=== PATIENT | male | born 1955 | race Caucasian/White ===

== ENCOUNTER 2017-03-02 05:20 | Emergency (ER) | payer BC ==
[~2017-03-02] VITALS: Ht 172.7 cm; Wt 96.2 kg
[~2017-03-02 05:20] MED LIST: FINA5TAB11 PO; PRAV40TA3 PO; RANI150T8 PO; TERA2CAP4 PO
--- NOTE | 2017-03-02 05:50 | NUR ---
PT PRESENTED TO THE ER WITH A C/O SOB. PT IS SPEAKING IN COMPLETE SENTENCES WITH NO DISTRESS. RESP EVEN AND UNLABORED. PT IS 97% ON RA. PT IS ON THE MONITOR AND CONTINUOUS PULSE OX.
--- NOTE | 2017-03-02 05:51 | NUR ---
18G IV STARTED AND BLOOD WAS DRAWN. SUPERVISOR OFFSET PLATE PREPARATION IS AT THE BEDSIDE FOR P/U.
[2017-03-02 05:59] LABS: BASOPHILS % (AUTO) 0.4 % (0.0-2.0); EOSINOPHILS # (AUTO) 0.2 /CMM (0.0-0.7); EOSINOPHILS % (AUTO) 1.7 % (0.0-6.0); HEMATOCRIT 42 % (39-51); HEMOGLOBIN 14.3 g/dL (13.5-17.5); LYMPHOCYTES # (AUTO) 1.8 /CMM (0.8-4.8); LYMPHOCYTES % (AUTO) 18.1 % (20.0-44.0); MEAN CORPUSCULAR HEMOGLOBIN 29 PG (26.0-33.0); MEAN CORPUSCULAR HGB CONC 34 g/dl (31.0-36.0); MEAN CORPUSCULAR VOLUME 85 fL (80-96); MONOCYTES # (AUTO) 0.8 /CMM (0.1-1.30); NEUTROPHILS % (AUTO) 71.8 % (43.0-81.0); PLATELET COUNT (AUTO) 176 /CMM (150-450); RDW COEFFICIENT OF VARIATION 13.4 (11.5-15.0); RED BLOOD CELL COUNT(AUTO) 4.99 MIL/uL (4.5-6.0); WHITE BLOOD COUNT (AUTO) 9.8 K/uL (4.3-11.0)
[2017-03-02 06:09] LABS: CALCIUM, SERUM 8.9 mg/dL (8.5-10.1); CARBON DIOXIDE 28 mmol/L (21-32); CHLORIDE 102 mmol/L (98-107); CREATININE 0.9 mg/dL (0.6-1.3); GLUCOSE 189 mg/dL (74-106); POTASSIUM 3.6 mmol/L (3.5-5.1); SODIUM SERUM 138 mmol/L (136-145); UREA NITROGEN, BLOOD 15 mg/dL (7-18)
--- NOTE | 2017-03-02 06:09 | NUR ---
CXR IN PROGRESS AT THE BEDSIDE.
[2017-03-02 06:14] LABS: INR 0.98 (0.87-1.13); PROTHROMBIN TIME 10.5 SECS (9.5-12.7)
[2017-03-02 06:17] LABS: TROPONIN I < 0.017 ng/mL (0.00-0.056)
[2017-03-02 06:22] LABS: ALANINE AMINOTRANSFERASE 29 U/L (12-78); ALBUMIN 3.5 g/dL (3.4-5.0); ALKALINE PHOSPHATASE 84 U/L (46-116); ASPARTATE AMINOTRANSFERASE 18 U/L (15-37); B-TYPE NATRIURETIC PEPTIDE 11 PG/ML (0-125); BILIRUBIN,DIRECT 0.2 mg/dL (0.0-0.2); BILIRUBIN,TOTAL 1.1 mg/dL (0.2-1.0); TOTAL PROTEIN, SERUM 7.4 g/dL (6.4-8.2)
--- NOTE | 2017-03-02 06:30 | NUR ---
DR. ABRAHAM IS AT THE BEDSIDE SPEAKING TO THE PT.
--- NOTE | 2017-03-02 06:38 | NUR ---
IV removed. Catheter intact and site benign. Pressure and 4x4 applied to site. No bleeding noted.Patient discharged to home in stable condition. Written and verbal after care instructions given. Patient verbalizes understanding of instruction. PT AMBULATED OUT WITH A STEADY GAIT. VSS
[2017-03-02 06:39] VITALS: BP 142/86
== END 2017-03-02 06:39 | disposition home or self-care (01) ==
LOC: ER 05:25
DX: G47.33 Obstructive sleep apnea (adult) (pediatric) (principal); K21.9 Gastro-esophageal reflux disease without esophagitis; M19.90 Unspecified osteoarthritis, unspecified site; E11.9 Type 2 diabetes mellitus without complications; N40.0 Benign prostatic hyperplasia without lower urinary tract symptoms; Z95.811 Presence of heart assist device
CPT/HCPCS: 36415; 71010-TC; 80048-TC; 80076-TC; 83880; 84484-TC; 85025-TC; 85730-TC; A4606; Z7610

== ENCOUNTER 2017-10-29 17:10 | Inpatient (IN) | payer BC ==
[~2017-10-29] VITALS: Ht 172.7 cm; Wt 97.5 kg
[2017-10-29] MEDS ORDERED: IPRATROPIUM NEB FS 0.5 MG/2.5 ML AMPUL.NEB ONE (17:51)
[2017-10-29] MEDS ORDERED: ALBUTEROL FS 2.5 MG/3 ML VIAL.NEB ONE (17:51)
[2017-10-29] MEDS ORDERED: ALBUTEROL FS 2.5 MG/3 ML VIAL.NEB NEB ONE (18:00)
[2017-10-29] MEDS ORDERED: methylPREDNISolone SOD SUCC 125 MG/2ML VIAL IV ONE (18:00)
[2017-10-29] MEDS ORDERED: IPRATROPIUM NEB FS 0.5 MG/2.5 ML AMPUL.NEB NEB ONE (18:00)
--- NOTE | 2017-10-29 18:00 | NUR ---
PT CAME IN FOR FLU LIKE SYMMTOMS, COUGH AND CONGESTION. AT BS FOR EVAL. VSS. SAFETY AND COMFORT MEASURES PROVIDED. IV ACCESS STARTED. BLOOD DRAWN FOR LABS. WILL MONITOR.
--- NOTE | 2017-10-29 18:07 | NUR ---
RT AT BS FOR BREATHING TX.
[2017-10-29 18:12] LABS: BASOPHILS % (AUTO) 0.4 % (0.0-2.0); EOSINOPHILS # (AUTO) 0.1 /CMM (0.0-0.7); EOSINOPHILS % (AUTO) 2.3 % (0.0-6.0); HEMATOCRIT 42 % (39-51); LYMPHOCYTES # (AUTO) 1.2 /CMM (0.8-4.8); LYMPHOCYTES % (AUTO) 20.1 % (20.0-44.0); MEAN CORPUSCULAR HEMOGLOBIN 29 PG (26.0-33.0); MEAN CORPUSCULAR HGB CONC 34 g/dl (31.0-36.0); MEAN CORPUSCULAR VOLUME 85 fL (80-96); MONOCYTES # (AUTO) 1.1 /CMM (0.1-1.30); MONOCYTES % (AUTO) 17.5 % (2.0-12.0); NEUTROPHILS # (AUTO) 3.6 /CMM (1.8-8.9); NEUTROPHILS % (AUTO) 59.7 % (43.0-81.0); PLATELET COUNT (AUTO) 168 /CMM (150-450); RDW COEFFICIENT OF VARIATION 13.7 (11.5-15.0); RED BLOOD CELL COUNT(AUTO) 4.93 MIL/uL (4.5-6.0)
[2017-10-29 18:20] LABS: CALCIUM, SERUM 8.7 mg/dL (8.5-10.1); CARBON DIOXIDE 26 mmol/L (21-32); CHLORIDE 108 mmol/L (98-107); CREATININE 1.1 mg/dL (0.6-1.3); GLUCOSE 123 mg/dL (74-106); POTASSIUM 3.7 mmol/L (3.5-5.1); SODIUM SERUM 143 mmol/L (136-145); UREA NITROGEN, BLOOD 18 mg/dL (7-18)
[2017-10-29 18:25] LABS: TROPONIN I < 0.017 ng/mL (0.00-0.056)
[2017-10-29 18:35] LABS: ALANINE AMINOTRANSFERASE 32 U/L (12-78); ALBUMIN 3.5 g/dL (3.4-5.0); ALKALINE PHOSPHATASE 78 U/L (46-116); ASPARTATE AMINOTRANSFERASE 21 U/L (15-37); B-TYPE NATRIURETIC PEPTIDE 55 PG/ML (0-125); BILIRUBIN,DIRECT 0.1 mg/dL (0.0-0.2); BILIRUBIN,TOTAL 0.8 mg/dL (0.2-1.0); TOTAL PROTEIN, SERUM 7.6 g/dL (6.4-8.2)
[2017-10-29] MEDS ORDERED: methylPREDNISolone SOD SUCC 125 MG/2ML VIAL ONE (18:37)
[2017-10-29] MEDS ORDERED: IOHEXOL-350 100 ML VIAL IV ONE (18:56)
[2017-10-29] MEDS ORDERED: IV NS 0.9% 1,000 ML IV PRN (18:58)
[2017-10-29] MEDS ORDERED: MAG HYDROX/AL HYDROX/SIMETH 30 ML UDC PO PRN (19:00)
[2017-10-29] MEDS ORDERED: Z GUARD REMEDY 2 OZ OINT TP PRN (19:00)
[2017-10-29] MEDS ORDERED: ACETAMINOPHEN 325 MG TABLET PO PRN (19:00)
[2017-10-29] MEDS ORDERED: HYDROCODONE/APAP 5/325MG 1 EACH TABLET PO PRN (19:00)
[2017-10-29] MEDS ORDERED: IV NS 0.9% 1,000 ML BAG IV ONE (19:00)
[2017-10-29] MEDS ORDERED: ZOLPIDEM TARTRATE 5 MG TABLET PO PRN (19:00)
[2017-10-29] MEDS ORDERED: MAGNESIUM HYDROXIDE 30 ML UDC PO PRN (19:00)
[2017-10-29] MEDS ORDERED: ONDANSETRON HCL/PF 4 MG/2 ML VIAL IVP PRN (19:00)
--- NOTE | 2017-10-29 19:00 | NUR ---
PT TAKEN TO CT.
[2017-10-29] MEDS ORDERED: ATOR80TA PO (19:13)
[2017-10-29] MEDS ORDERED: GLIP5TAB13 PO (19:13)
[2017-10-29] MEDS ORDERED: LISI2.5T2 PO (19:13)
[2017-10-29] MEDS ORDERED: SITA50TA PO (19:13)
[2017-10-29] MEDS ORDERED: CLOP75TA15 PO (19:13)
--- NOTE | 2017-10-29 19:18 | NUR ---
PATIENT BACK FROM CT. VSS. NAD NOTED. REPORTS RELIEF FROM SOB POST BREATHING TREATMENT. ONGOING NORMAL SALINE BOLUS. WILL CONTINUE TO MONITOR.
[2017-10-29 19:21] LABS: APPEARANCE,URINE CLEAR (CLEAR); BILIRUBIN,URINE NEGATIVE (NEGATIVE); BLOOD, URINE 3+ Ery/uL (NEGATIVE); COLOR,URINE YELLOW (YELLOW); KETONES,URINE NEGATIVE (NEGATIVE); LEUKOCYTE ESTERASE ,URINE NEGATIVE (NEGATIVE); NITRITE, URINE NEGATIVE (NEGATIVE); PH,URINE 5.5 (5.0-8.0); PROTEIN,URINE 1+ mg/dl (NEGATIVE); UGLUCOSE NEGATIVE (NEGATIVE); UROBILINOGEN,URINE 0.2 EU/dL (0.2)
[2017-10-29] MEDS ORDERED: OXYB10TA PO (19:21)
[2017-10-29] MEDS ORDERED: PENT100C9 PO (19:21)
[2017-10-29 19:55] LABS: BACTERIA,URINE 1+ /HPF (None Seen); RBC,URINE 21-50 /HPF (0-2); SQUAMOUS EPITHELIAL CELL,UR 0-2 /HPF (None Seen); WBC,URINE 0-2 /HPF (0-3)
[2017-10-29 19:56] LABS: MUCUS,URINE Few /LPF (None Seen)
[2017-10-29 20:11] LABS: BAND % (MANUAL) 6 % (0.0-5.0); EOSINOPHILS % (MANUAL) 1 % (0-4); LYMPHOCYTES % (MANUAL) 10 % (16-48); MONOCYTES % (MANUAL) 18 % (0-11.0); NEUTROPHILS % (MANUAL) 65 (42-76)
--- NOTE | 2017-10-29 20:44 | NUR ---
REPORT GIVEN TO SABINO MARR FOR ADMISSION AND NAV.
--- NOTE | 2017-10-29 20:59 | NUR ---
TRANSFERRED PATIENT TO TELE FLOOR VIA ALS PROTOCOL, NO INCIDENT NOTED.
--- NOTE | 2017-10-29 21:00 | NUR ---
RN OPENING NOTES RECEIVED PATIENT FROM ER IN STABLE CONDITION, ALERT AND ORIENTED X4. VS STABLE. NO C/O PAIN OR DISCOMFORT AT THIS TIME. BS X4. ON OXYGEN 2L, PATIENT IS TOLERATING WELL. RESPIRATIONS EVEN AND UNLABORED. TELE MONITOR IS IN PLACE, SR 76 BPM. IV ACCESS ON LEFT AC PATENT AND INTACT, NO REDNESS OR INFILTRATION NOTED. BED IN LOW AND LOCKED POSITION. CALL LIGHT WITHIN EASY REACH. WILL CONTINUE TO MONITOR AND ASSESS DURING THE SHIFT.
[2017-10-29] MEDS: FINASTERIDE (5 MG) 5 MG TABLET PO SCH (21:33)
[2017-10-29] MEDS: TERAZOSIN HCL 1 MG CAPSULE PO SCH (21:34)
[2017-10-29] MEDS: ENOXAPARIN SODIUM 40 MG/0.4 ML DISP.SYRIN SQ SCH (21:35)
--- NOTE | 2017-10-29 23:10 | NUR ---
RN NOTES RECEIVED PT. FROM ANOTHER NURSE RAJAN PT. IS SLEEPING BUT AROUSABLE, A/OX2, SR ON TELE MONITOR HR-85, DENIES PAIN, NO SOB, CALL LIGHT WITHIN REACH, SIDERAILSUPX2, CONTINUE TO MONITOR
[2017-10-30] VITALS (8 sets, daily range): BP systolic 99–122; BP diastolic 52–78
--- NOTE | 2017-10-30 03:50 | NUR ---
RN NOTES PT. IS COMPLAINING OF COUGHING , SPOKE TO DR. MARTE AND DIDN'T GIVE AN ORDER OF COUGH MEDICATION BECAUDE PER DR. KAHN PT. NEED TO COUGH BECAUSE PT. CAME FOR COPD
[2017-10-30 06:45] LABS: BASOPHILS % (AUTO) 0.1 % (0.0-2.0); HEMATOCRIT 38 % (39-51); LYMPHOCYTES # (AUTO) 0.6 /CMM (0.8-4.8); LYMPHOCYTES % (AUTO) 16.2 % (20.0-44.0); MEAN CORPUSCULAR HEMOGLOBIN 29 PG (26.0-33.0); MEAN CORPUSCULAR HGB CONC 34 g/dl (31.0-36.0); MEAN CORPUSCULAR VOLUME 85 fL (80-96); MONOCYTES # (AUTO) 0.1 /CMM (0.1-1.30); NEUTROPHILS # (AUTO) 3.2 /CMM (1.8-8.9); NEUTROPHILS % (AUTO) 80.7 % (43.0-81.0); PLATELET COUNT (AUTO) 157 /CMM (150-450); RDW COEFFICIENT OF VARIATION 13.6 (11.5-15.0); WHITE BLOOD COUNT (AUTO) 3.9 K/uL (4.3-11.0)
--- NOTE | 2017-10-30 06:47 | NUR ---
RN NOTES IV GOT INFILTRATED, NEW IV LINE INSERTED ON THE RIGHT FOREARM, MORNING CARE RENDERED, CALL LIGHT WITHIN REACH, SIDERAILSUPX2, PT. NEEDS ATTENDED
[2017-10-30 07:01] LABS: THYROID STIMULATING HORMONE 0.4 uIU/mL (0.358-3.74)
[2017-10-30 07:15] LABS: CALCIUM, SERUM 8.1 mg/dL (8.5-10.1); CREATININE 0.8 mg/dL (0.6-1.3); MAGNESIUM 1.8 mg/dL (1.8-2.4); PHOSPHORUS 3.3 mg/dL (2.5-4.9); POTASSIUM 4.3 mmol/L (3.5-5.1)
--- NOTE | 2017-10-30 07:27 | NUR ---
RN OPENING NOTES RECEIVED PATIENT IN BED RESTING, A/OX4. NO ACUTE DISTRESS, NO SOB. DENIES PAIN OR DISCOMFORT AT THIS TIME. ON TELEMONITORING, SB 58. IV SITE INTACT AND PATENT. KEPT PATIENT SAFE AND COMFORTABLE IN BED. BED IN LOW/LOCKED POSITION, SIDERAILS UPX2, HOB ELEVATED, CALL LIGHT IN REACH, WILL CONTINUE TO MONITOR ACCORDINGLY.
[2017-10-30] MEDS: LISINOPRIL (5MG) 5 MG TABLET PO SCH (10:30)
[2017-10-30] MEDS: CLOPIDOGREL BISULFATE 75 MG TABLET PO SCH (10:52)
[2017-10-30] MEDS: methylPREDNISolone SOD SUCC 40 MG/ML VIAL IV SCH ×3 (10:54→17:41)
[2017-10-30] MEDS ORDERED: IPRATROPIUM NEB FS 0.5 MG/2.5 ML AMPUL.NEB NEB PRN (11:00)
[2017-10-30] MEDS ORDERED: INSULIN REGULAR, HUMAN 100 UNIT/ML 3 ML VIAL SQ PRN ×2 (11:00→22:30)
[2017-10-30] MEDS ORDERED: DEXTROSE 50%-WATER 50 ML DISP.SYRIN IV PRN ×2 (11:00→22:30)
[2017-10-30] MEDS: LEVOFLOXACIN 500 MG /D5W 100ML 500 MG in PREMIX 1 EA IV SCH (11:48)
[2017-10-30] MEDS: OXYBUTYNIN CHLORIDE 5 MG TABLET PO SCH (12:34)
[2017-10-30] MEDS: BLOOD SUGAR DIAGNOSTIC 1 EACH STRIP IN SCH ×3 (12:47→21:56)
--- NOTE | 2017-10-30 12:47 | NUR ---
RN NOTES BS 213, REFUSED INSULIN. PER PATIENT " I DONT TAKE INSULIN".
[2017-10-30] MEDS: ALBUTEROL FS 2.5 MG/3 ML VIAL.NEB NEB SCH ×2 (15:41→20:25)
--- NOTE | 2017-10-30 18:36 | NUR ---
RN NOTES BS 191, REFUSED INSULIN.
--- NOTE | 2017-10-30 19:30 | NUR ---
RN CLOSING NOTES PATIENT IN BED RESTING. NO ACUTE DISTRESS, NO SOB NOTED. DENIES PAIN OR DISCOMFORT. ALL NEEDS ATTENDED AND PROVIDED. KEPT PATIENT SAFE AND COMFORTABLE. BED IN LOW/LOCKED POSITION, SIDERAILS UPX2, CALL LIGHT IN REACH. ENDORSED TO NIGHT RN FOR NAV.
--- NOTE | 2017-10-30 19:30 | NUR ---
RN OPENING NOTES RECEIVED PATIENT IN BED RESTING, A/OX4. NO ACUTE DISTRESS, NO SOB. DENIES PAIN OR DISCOMFORT AT THIS TIME. ON TELEMONITORING, SB 50. IV SITE INTACT AND PATENT. KEPT PATIENT SAFE AND COMFORTABLE IN BED. BED IN LOW/LOCKED POSITION, SIDERAILS UPX2, HOB ELEVATED, CALL LIGHT IN REACH, WILL CONTINUE TO MONITOR ACCORDINGLY.
[2017-10-30] MEDS: ENOXAPARIN SODIUM 40 MG/0.4 ML DISP.SYRIN SQ SCH (19:33)
[2017-10-30] MEDS ORDERED: BENZONATATE 100 MG CAPSULE PO PRN (20:30)
[2017-10-30] MEDS ORDERED: GUAIFENESIN/D-METHORPHAN HB 5 ML UDC PO PRN (20:30)
[2017-10-30] MEDS: FINASTERIDE (5 MG) 5 MG TABLET PO SCH (21:55)
[2017-10-30] MEDS: TERAZOSIN HCL 1 MG CAPSULE PO SCH (21:56)
[2017-10-30] MEDS ORDERED: ATORVASTATIN 40 MG TABLET PO SCH (22:00)
[2017-10-30] MEDS ORDERED: FAMOTIDINE (20 MG) 20 MG TABLET PO SCH (22:00)
[2017-10-30] MEDS ORDERED: ATORVASTATIN 10 MG TABLET PO SCH (22:00)
--- NOTE | 2017-10-30 22:12 | NUR ---
teletypesetter monitor note Patient's blood sugar is 444. Explained what normal range should be. Patient is non-compliant with diet and non-compliant with insulin. He has refused insulin twice today. He states that he takes po medication at home for his diabetes. Educated patient on insulin use and importance of proper diet. Patient agreed to have 10 units of insulin administered. Notified Dr. Pena. New order received to change to aggressive sliding scale. Patient stable at this time. Will re-check blood sugar.
[2017-10-30] MEDS ORDERED: *INSULIN REGULAR(HUMULIN R)HUM 100 UNIT/ML VIAL SQ PRN (22:30)
[2017-10-31] VITALS: BP 99/47
[2017-10-31 04:00] VITALS: BP 107/47
--- NOTE | 2017-10-31 06:32 | NUR ---
MANAGER RESOURCE NOTE PATIENT STABLE. BLOOD SUGAR 209. 8 UNITS OF REGULAR INSULIN GIVEN. ALL NEEDS MET AND ATTENDED TO. WILL ENDORSE TO DAY SHIFT FOR NAV.
[2017-10-31 06:56] LABS: BASOPHILS % (AUTO) 0.1 % (0.0-2.0); EOSINOPHILS % (AUTO) 0.1 % (0.0-6.0); HEMATOCRIT 34 % (39-51); HEMOGLOBIN 11.7 g/dL (13.5-17.5); LYMPHOCYTES # (AUTO) 1.1 /CMM (0.8-4.8); LYMPHOCYTES % (AUTO) 9.7 % (20.0-44.0); MEAN CORPUSCULAR HEMOGLOBIN 29 PG (26.0-33.0); MEAN CORPUSCULAR HGB CONC 34 g/dl (31.0-36.0); MEAN CORPUSCULAR VOLUME 86 fL (80-96); MONOCYTES # (AUTO) 0.9 /CMM (0.1-1.30); MONOCYTES % (AUTO) 8.1 % (2.0-12.0); NEUTROPHILS # (AUTO) 9.3 /CMM (1.8-8.9); PLATELET COUNT (AUTO) 139 /CMM (150-450); RDW COEFFICIENT OF VARIATION 13.6 (11.5-15.0); WHITE BLOOD COUNT (AUTO) 11.3 K/uL (4.3-11.0)
[2017-10-31 07:01] LABS: CALCIUM, SERUM 7.4 mg/dL (8.5-10.1); CREATININE 0.7 mg/dL (0.6-1.3); MAGNESIUM 1.9 mg/dL (1.8-2.4); PHOSPHORUS 3.5 mg/dL (2.5-4.9); POTASSIUM 3.6 mmol/L (3.5-5.1)
[2017-10-31] MEDS: BLOOD SUGAR DIAGNOSTIC 1 EACH STRIP IN SCH ×2 (07:01→12:00)
[2017-10-31] MEDS: ALBUTEROL FS 2.5 MG/3 ML VIAL.NEB NEB SCH ×2 (07:25→11:17)
--- NOTE | 2017-10-31 07:31 | NUR ---
RN OPENING NOTES RECEIVED PATIENT IN BED RESTING, A/OX4. NO ACUTE DISTRESS, NO SOB. DENIES PAIN OR DISCOMFORT AT THIS TIME. ON TELEMONITORING, SB 48. IV SITE INTACT AND PATENT. KEPT PATIENT SAFE AND COMFORTABLE IN BED. BED IN LOW/LOCKED POSITION, SIDERAILS UPX2, HOB ELEVATED, CALL LIGHT IN REACH, WILL CONTINUE TO MONITOR ACCORDINGLY.
[2017-10-31 08:00] VITALS: BP 111/62
[2017-10-31 08:08] VITALS: BP 111/62
[2017-10-31 08:36] VITALS: BP 106/68
[2017-10-31] MEDS: methylPREDNISolone SOD SUCC 40 MG/ML VIAL IV SCH (08:36)
[2017-10-31] MEDS: LISINOPRIL (5MG) 5 MG TABLET PO SCH (08:36)
[2017-10-31] MEDS: OXYBUTYNIN CHLORIDE 5 MG TABLET PO SCH ×2 (08:48→09:00)
[2017-10-31] MEDS: CLOPIDOGREL BISULFATE 75 MG TABLET PO SCH ×2 (08:48→09:00)
[2017-10-31] MEDS ORDERED: PHENYLEPHRINE/SHK LV/MO/PET,WH 30 GM TUBE RC SCH (09:00)
--- NOTE | 2017-10-31 09:00 | NUR ---
RN NOTES PATIENT REFUSED AM MEDS. PATIENT CLAIMED THAT HAS MEDICATION FROM HIS BELONGINGS AND TOOK THEM ALREADY. INFORMED PATIENT THAT HE'S NOT SUPPOSED TO TAKE HOME MEDICATIONS WITHOUT STAFF KNOWING. ASKED PATIENT TO TAKE MEDICATIONS TO PHARMACY, PATIENT AGREED. INFORMED PICTURE HANGER AND NOE BRADSHAW NP.
[2017-10-31] MEDS: LEVOFLOXACIN 500 MG /D5W 100ML 500 MG in PREMIX 1 EA IV SCH (12:03)
[2017-10-31] MEDS ORDERED: LEVO500T90 PO (12:49)
[2017-10-31] MEDS ORDERED: ALBU18HF2 INH (12:49)
[2017-10-31] MEDS ORDERED: PRED20TA PO (12:49)
[2017-10-31] MEDS ORDERED: PRED20TA GT (12:49)
--- NOTE | 2017-10-31 14:30 | NUR ---
STRATEGIC MARKETING LEADER NOTES DISCHARGED PATIENT IN STABLE CONDITION ACCOMPANIED BY TEJINDER MORA. DISCHARGE INSTRUCTIONS GIVEN, VERBALIZED UNDERSTANDING, PAPERWORK GIVEN. ALL BELONGINGS AND MEDICATIONS RETURNED, FORMS SIGNED. D/C IV, NO BLEEDING, NO COMPLICATIONS. REMOVED NAME BAND.
== END 2017-10-31 14:32 | disposition home or self-care (01) | DRG 189 ==
LOC: ER 17:14 → TELE 20:37
PROVIDERS: ADMIT Internal Medicine; ATTEND Internal Medicine
DX: J96.01 Acute respiratory failure with hypoxia (principal); I95.9 Hypotension, unspecified; E87.2 Acidosis; J44.0 Chronic obstructive pulmonary disease with (acute) lower respiratory infection; N30.10 Interstitial cystitis (chronic) without hematuria; J44.1 Chronic obstructive pulmonary disease with (acute) exacerbation; E11.9 Type 2 diabetes mellitus without complications; D72.828 Other elevated white blood cell count; K21.9 Gastro-esophageal reflux disease without esophagitis; E78.5 Hyperlipidemia, unspecified; J20.9 Acute bronchitis, unspecified; I25.10 Atherosclerotic heart disease of native coronary artery without angina pectoris; E66.9 Obesity, unspecified; G47.30 Sleep apnea, unspecified; Z79.84 Long term (current) use of oral hypoglycemic drugs; Z98.61 Coronary angioplasty status; R59.1 Generalized enlarged lymph nodes; N40.1 Benign prostatic hyperplasia with lower urinary tract symptoms; T38.0X5A Adverse effect of glucocorticoids and synthetic analogues, initial encounter; Y92.89 Other specified places as the place of occurrence of the external cause; Z68.32 Body mass index [BMI] 32.0-32.9, adult; N28.89 Other specified disorders of kidney and ureter
CPT/HCPCS: 36415; 71045-TC; 80048-TC; 80061-TC; 80076-TC; 81000-TC; 82746; 82962-TC; 83540-TC; 83605-TC; 83735-TC; 83880; 84100-TC; 84443-TC; 84484-TC; 85025-TC; 85378-TC; 87040-TC; 87081-TC; 87400; A4216; A4606; J1650; J1815; J1956; J2920; J2930; J7030; Q9967; Z7610

== ENCOUNTER 2017-12-01 17:06 | Emergency (ER) | payer BC ==
[~2017-12-01] VITALS: Ht 177.8 cm; Wt 74.8 kg
[~2017-12-01 17:06] MED LIST changes: +ALBU18HF2 INH; +ATOR80TA PO; +CLOP75TA15 PO; +GLIP5TAB13 PO; +LEVO500T90 PO; +LISI2.5T2 PO; +OXYB10TA PO; +PENT100C9 PO; +PRED20TA GT; +PRED20TA PO; +SITA50TA PO; -TERA2CAP4 PO
--- NOTE | 2017-12-01 17:17 | NUR ---
INCREASING SOB X 1 MONTH, L SIDED CHEST PRESSURE X 2 DAYS
[2017-12-01] MEDS ORDERED: NITROGLYCERIN PACKET 1 GM PACKET TD ONE (17:30)
[2017-12-01] MEDS ORDERED: ASPIRIN 325 MG TABLET PO ONE (17:30)
[2017-12-01] MEDS ORDERED: ASPIRIN 325 MG TABLET ONE (17:44)
[2017-12-01] MEDS ORDERED: NITROGLYCERIN PACKET 1 GM PACKET ONE (17:44)
[2017-12-01 17:45] LABS: BASOPHILS % (AUTO) 0.5 % (0.0-2.0); EOSINOPHILS # (AUTO) 0.2 /CMM (0.0-0.7); EOSINOPHILS % (AUTO) 2.4 % (0.0-6.0); HEMATOCRIT 40 % (39-51); HEMOGLOBIN 13.8 g/dL (13.5-17.5); LYMPHOCYTES % (AUTO) 25.3 % (20.0-44.0); MEAN CORPUSCULAR HEMOGLOBIN 29 PG (26.0-33.0); MEAN CORPUSCULAR HGB CONC 35 g/dl (31.0-36.0); MEAN CORPUSCULAR VOLUME 83 fL (80-96); MONOCYTES % (AUTO) 12.5 % (2.0-12.0); NEUTROPHILS # (AUTO) 4.6 /CMM (1.8-8.9); NEUTROPHILS % (AUTO) 59.3 % (43.0-81.0); PLATELET COUNT (AUTO) 255 /CMM (150-450); RDW COEFFICIENT OF VARIATION 13.1 (11.5-15.0); RED BLOOD CELL COUNT(AUTO) 4.78 MIL/uL (4.5-6.0); WHITE BLOOD COUNT (AUTO) 7.8 K/uL (4.3-11.0)
[2017-12-01 17:58] LABS: CALCIUM, SERUM 9.3 mg/dL (8.5-10.1); CARBON DIOXIDE 29 mmol/L (21-32); CHLORIDE 101 mmol/L (98-107); GLUCOSE 229 mg/dL (74-106); POTASSIUM 3.9 mmol/L (3.5-5.1); SODIUM SERUM 136 mmol/L (136-145); UREA NITROGEN, BLOOD 13 mg/dL (7-18)
[2017-12-01 18:01] LABS: INR 0.97 (0.85-1.15)
[2017-12-01 18:06] LABS: TROPONIN I < 0.017 ng/mL (0.00-0.056)
[2017-12-01 18:10] LABS: B-TYPE NATRIURETIC PEPTIDE 25 PG/ML (0-125)
--- NOTE | 2017-12-01 18:15 | NUR ---
DR. DEMAR GRIFFIN ACCELERATOR SYSTEMS DIRECTOR
[2017-12-01 18:22] VITALS: BP 149/83
[2017-12-01] MEDS ORDERED: ALBU18HF2 IH (18:37)
[2017-12-01] MEDS ORDERED: ASPI-1169 PO (18:37)
[2017-12-01] MEDS ORDERED: ALBUTEROL SULFATE 8 GM HFA.AER.AD IH PRN (19:00)
--- NOTE | 2017-12-01 19:13 | NUR ---
GAVE REPORT TO [facility] FOR NAV
--- NOTE | 2017-12-01 19:49 | NUR ---
Patient does not wish to proceed with medical care recommended by Dr. OTERO ). Patient given information related to possible complications, up to and including , which could occur as a result of leaving the hospital at this time. Patient verbalizes understanding of risks involved due to leaving against medical advice. Patient has signed AMA form. made aware.
--- NOTE | 2017-12-01 19:56 | NUR ---
IV removed. Catheter intact and site benign. Pressure and 4x4 applied to site. No bleeding noted. VSS upon leaving AMA
[2017-12-01] MEDS ORDERED: FINASTERIDE (5 MG) 5 MG TABLET PO SCH (22:00)
[2017-12-02] MEDS ORDERED: ASPIRIN 81 MG TAB.CHEW PO SCH (09:00)
[2017-12-02] MEDS ORDERED: CLOPIDOGREL BISULFATE 75 MG TABLET PO SCH (09:00)
[2017-12-02] MEDS ORDERED: ATORVASTATIN 40 MG TABLET PO SCH (22:00)
[2017-12-03] MEDS ORDERED: OXYBUTYNIN CHLORIDE 5 MG TABLET PO SCH ×2 (09:00)
[2017-12-03] MEDS ORDERED: LISINOPRIL (5MG) 5 MG TABLET PO SCH ×2 (09:00)
[2017-12-03] MEDS ORDERED: ATORVASTATIN 40 MG TABLET PO SCH (22:00)
== END 2017-12-01 19:56 | disposition left against medical advice (07) ==
LOC: ER 17:08
DX: R07.89 Other chest pain (principal); E11.9 Type 2 diabetes mellitus without complications; E78.5 Hyperlipidemia, unspecified; G47.30 Sleep apnea, unspecified; I10 Essential (primary) hypertension; F17.200 Nicotine dependence, unspecified, uncomplicated; I25.10 Atherosclerotic heart disease of native coronary artery without angina pectoris; I25.2 Old myocardial infarction; K21.9 Gastro-esophageal reflux disease without esophagitis; M19.90 Unspecified osteoarthritis, unspecified site; N40.0 Benign prostatic hyperplasia without lower urinary tract symptoms; Z79.82 Long term (current) use of aspirin; Z79.84 Long term (current) use of oral hypoglycemic drugs; Z95.5 Presence of coronary angioplasty implant and graft
CPT/HCPCS: 36415; 71045; 80048; 83880; 84484; 85025; 85730; 87081; 93005; 99285; A4606; Z7610

== ENCOUNTER 2017-12-02 10:08 | Emergency (ER) | payer BC ==
[~2017-12-02] VITALS: Ht 172.7 cm; Wt 97.5 kg
[~2017-12-02 10:08] MED LIST changes: +ALBU18HF2 IH; -ALBU18HF2 INH; +ASPI-1169 PO; -LEVO500T90 PO; -PRAV40TA3 PO; -PRED20TA GT; -PRED20TA PO; -RANI150T8 PO
--- NOTE | 2017-12-02 10:44 | NUR ---
Line started on R ac g 20, blood drawn from line and sent to lab
[2017-12-02 11:23] LABS: BASOPHILS # (AUTO) 0.1 /CMM (0.0-0.2); BASOPHILS % (AUTO) 0.7 % (0.0-2.0); EOSINOPHILS # (AUTO) 0.1 /CMM (0.0-0.7); EOSINOPHILS % (AUTO) 1.5 % (0.0-6.0); HEMATOCRIT 40 % (39-51); HEMOGLOBIN 13.6 g/dL (13.5-17.5); LYMPHOCYTES # (AUTO) 1.7 /CMM (0.8-4.8); MEAN CORPUSCULAR HEMOGLOBIN 28 PG (26.0-33.0); MEAN CORPUSCULAR HGB CONC 34 g/dl (31.0-36.0); MEAN CORPUSCULAR VOLUME 83 fL (80-96); MONOCYTES # (AUTO) 0.7 /CMM (0.1-1.30); MONOCYTES % (AUTO) 8.6 % (2.0-12.0); NEUTROPHILS # (AUTO) 5.3 /CMM (1.8-8.9); NEUTROPHILS % (AUTO) 68.2 % (43.0-81.0); PLATELET COUNT (AUTO) 239 /CMM (150-450); RDW COEFFICIENT OF VARIATION 13.2 (11.5-15.0); RED BLOOD CELL COUNT(AUTO) 4.79 MIL/uL (4.5-6.0); WHITE BLOOD COUNT (AUTO) 7.9 K/uL (4.3-11.0)
--- NOTE | 2017-12-02 11:27 | NUR ---
assume pt care. resting in bed. on monitor. on o2@2l/m via ns. denies chest pain at this time. pt is here for sob since this morning worst while walking the dog earlier. seen here yesterday and was advised to stay. will continue to monitor.
--- NOTE | 2017-12-02 11:32 | NUR ---
radiology at bedside for chest xray.
--- NOTE | 2017-12-02 11:33 | NUR ---
328-1TELE UPDATED BED.
[2017-12-02 11:37] LABS: CALCIUM, SERUM 8.9 mg/dL (8.5-10.1); CARBON DIOXIDE 27 mmol/L (21-32); CHLORIDE 101 mmol/L (98-107); CREATININE 0.9 mg/dL (0.6-1.3); GLUCOSE 272 mg/dL (74-106); POTASSIUM 3.9 mmol/L (3.5-5.1); SODIUM SERUM 137 mmol/L (136-145); UREA NITROGEN, BLOOD 12 mg/dL (7-18)
[2017-12-02 11:41] LABS: INR 0.99 (0.85-1.15)
[2017-12-02 11:47] LABS: TROPONIN I < 0.017 ng/mL (0.00-0.056)
--- NOTE | 2017-12-02 12:02 | NUR ---
report given to dominic. pt awaiting transfer to floor.
--- NOTE | 2017-12-02 12:51 | NUR ---
Patient does not wish to proceed with medical care recommended by Dr. Camarena. Patient given information related to possible complications, up to and including , which could occur as a result of leaving the hospital at this time. Patient verbalizes understanding of risks involved due to leaving against medical advice. Patient has signed AMA form. IV removed. Catheter intact and site benign. Pressure and 4x4 applied to site. No bleeding noted. D/c home stable condition.
[2017-12-02 12:56] VITALS: BP 115/66
== END 2017-12-02 12:57 | disposition left against medical advice (07) ==
LOC: ER 10:09 → UNDOADMIN 11:35 → TELE 11:35
DX: R06.02 Shortness of breath (principal); I25.10 Atherosclerotic heart disease of native coronary artery without angina pectoris; K21.9 Gastro-esophageal reflux disease without esophagitis; F17.200 Nicotine dependence, unspecified, uncomplicated; E11.9 Type 2 diabetes mellitus without complications; I10 Essential (primary) hypertension
CPT/HCPCS: 36415; 71045-TC; 80048-TC; 84484-TC; 85025-TC; 85730-TC; 87081-TC; A4606; Z7610

== ENCOUNTER 2017-12-15 17:13 | Emergency (ER) | payer BC ==
[~2017-12-15] VITALS: Ht 165.1 cm; Wt 74.8 kg
[2017-12-15] MEDS ORDERED: MORPHINE SULFATE INJ 2 MG/ML DISP.SYRIN IM ONE (17:30)
[2017-12-15] MEDS ORDERED: MORPHINE SULFATE INJ 4 MG/ML DISP.SYRIN ONE (17:30)
--- NOTE | 2017-12-15 17:30 | NUR ---
PATIENT TO ED DT BLADDER AND URETRA PAIN 10/10, SHARP.-- PATIENT NOTED WITH SONG CATHETER WITH DARK COLORED URINE. PATIENT TR AFEBRILE. VSS
[2017-12-15 17:48] LABS: APPEARANCE,URINE Cloudy (CLEAR); BILIRUBIN,URINE SMALL (NEGATIVE); BLOOD, URINE Large Ery/uL (NEGATIVE); COLOR,URINE Amber (YELLOW); KETONES,URINE Trace (NEGATIVE); LEUKOCYTE ESTERASE ,URINE Negative (NEGATIVE); NITRITE, URINE Positive (NEGATIVE); PH,URINE 6.5 (5.0-8.0); PROTEIN,URINE >=300 mg/dl (NEGATIVE); UGLUCOSE 500 MG/DL mg/dL (NEGATIVE)
[2017-12-15 18:00] LABS: RBC,URINE TOO NUMEROUS TO COUN /HPF (0-2)
[2017-12-15 18:01] LABS: BACTERIA,URINE 1+ /HPF (None Seen); SQUAMOUS EPITHELIAL CELL,UR Few /HPF (None Seen)
[2017-12-15 19:08] VITALS: BP 130/80
--- NOTE | 2017-12-15 19:09 | NUR ---
Patient discharged to home in stable condition. Written and verbal after care instructions given. Patient verbalizes understanding of instruction.
== END 2017-12-15 19:09 | disposition home or self-care (01) ==
LOC: ER 17:19
DX: T83.098A Other mechanical complication of other urinary catheter, initial encounter (principal); E11.9 Type 2 diabetes mellitus without complications; G47.30 Sleep apnea, unspecified; I25.10 Atherosclerotic heart disease of native coronary artery without angina pectoris; K21.9 Gastro-esophageal reflux disease without esophagitis; M19.90 Unspecified osteoarthritis, unspecified site; N30.10 Interstitial cystitis (chronic) without hematuria; N40.0 Benign prostatic hyperplasia without lower urinary tract symptoms; F17.200 Nicotine dependence, unspecified, uncomplicated; Z79.82 Long term (current) use of aspirin; Z79.84 Long term (current) use of oral hypoglycemic drugs; Z95.5 Presence of coronary angioplasty implant and graft; Y92.89 Other specified places as the place of occurrence of the external cause
CPT/HCPCS: 81000-TC; 87086-TC; 87186-TC; A4606; J2270; Z7610

== ENCOUNTER 2018-01-04 19:37 | Emergency (ER) | payer BC ==
[~2018-01-04] VITALS: Ht 172.7 cm; Wt 95.3 kg
--- NOTE | 2018-01-04 20:05 | NUR ---
PT PRESENTED TO THE ER WITH A C/O SUPRAPUBIC PAIN/BLADDER PAIN. PT HAS HX OF BLADDER CA AND IS GOING TO HAVE HIS BLADDER AND PROSTATE REMOVED IN 3 WEEKS. PT IS C/O SEVERE PAIN, SONG CATH WITH LEG BAG IN PLACE. BLADDER SCANNER SHOWED 11ML URINE.
--- NOTE | 2018-01-04 20:15 | NUR ---
DR RAMIREZ IS AT THE BEDSIDE SPEAKING TO THE PT.
[2018-01-04] MEDS ORDERED: MORPHINE SULFATE INJ 4 MG/ML DISP.SYRIN ONE (20:18)
--- NOTE | 2018-01-04 20:24 | NUR ---
PRE REC'D MEDICATION ORDERED. PT DOESN'T WANT TO CHANGE THE SONG AT THIS TIME.
--- NOTE | 2018-01-04 20:26 | NUR ---
PT REC'D MEDICATION ORDERED.
[2018-01-04] MEDS ORDERED: HYDROMORPHONE 1 MG/1 ML DISP.SYRIN IM ONE (20:30)
[2018-01-04] MEDS ORDERED: MORPHINE SULFATE INJ 2 MG/ML DISP.SYRIN IM ONE (20:30)
[2018-01-04] MEDS ORDERED: LIDOCAINE 2% JEL UROJET 10 ML MM ONE ×2 (20:30→20:58)
--- NOTE | 2018-01-04 20:32 | NUR ---
INFORMED DR. RAMIREZ NOTED 121MLS VIA BLADDER SCANNER.
--- NOTE | 2018-01-04 21:48 | NUR ---
PT REC'D A LEG BAG AND STATED THAT HE HAD NO DISCOMFORT AT THIS TIME. PT'S SONG SLIGHTLY LEAKED. BALLOON WAS DEFLATED AND ADJUSTED, THEN REINFLATED WITH 10ML NS. PT HAD APPROX 150 ML URINE OUTPUT IN THE LEG BAG. PT WAS C/O ABD SPASMS. DR. RAMIREZ WAS NOTIFIED AND NEW ORDERS WERE GIVEN AND CARRIED. VSS. PT AMBULATED OUT TO THE LOBBY WHERE HIS FRIEND IS WAITING TO TAKE THE PT HOME. NAD NOTED. RESP EVEN AND UNLABORED.
[2018-01-04] MEDS ORDERED: DIAZEPAM 5 MG TABLET ONE (21:55)
--- NOTE | 2018-01-04 21:59 | NUR ---
Patient discharged to home in stable condition. Written and verbal after care instructions given. Patient verbalizes understanding of instruction.
[2018-01-04] MEDS ORDERED: DIAZEPAM 10 MG TABLET PO ONE (22:00)
[2018-01-04 22:01] VITALS: BP 135/78
== END 2018-01-04 21:59 | disposition home or self-care (01) ==
LOC: ER 19:38
DX: T83.9XXA Unspecified complication of genitourinary prosthetic device, implant and graft, initial encounter (principal); G89.29 Other chronic pain; E11.9 Type 2 diabetes mellitus without complications; G47.30 Sleep apnea, unspecified; I25.10 Atherosclerotic heart disease of native coronary artery without angina pectoris; K21.9 Gastro-esophageal reflux disease without esophagitis; M19.90 Unspecified osteoarthritis, unspecified site; N30.10 Interstitial cystitis (chronic) without hematuria; F17.200 Nicotine dependence, unspecified, uncomplicated; N40.0 Benign prostatic hyperplasia without lower urinary tract symptoms; Z79.82 Long term (current) use of aspirin; Z79.84 Long term (current) use of oral hypoglycemic drugs; Z95.5 Presence of coronary angioplasty implant and graft
CPT/HCPCS: A4606; J2270; J3490; Z7610

== ENCOUNTER 2018-01-05 07:33 | Emergency (ER) | payer BC ==
[~2018-01-05] VITALS: Ht 172.7 cm; Wt 93.0 kg
--- NOTE | 2018-01-05 07:33 | NUR ---
C/O BILATERAL LQ ABD PAIN PT WAS HERE LAST NIGHT FOR CATHETER CHANGE HX BLADDER CA
[2018-01-05] MEDS ORDERED: HYDROCODONE/APAP 5/325MG 1 EACH TABLET ONE (07:53)
[2018-01-05] MEDS ORDERED: LIDOCAINE 2% JEL UROJET 10 ML MM ONE ×2 (07:53→08:00)
[2018-01-05] MEDS ORDERED: HYDROCODONE/APAP 5/325MG 1 EACH TABLET PO ONE (08:00)
[2018-01-05] MEDS ORDERED: ONDANSETRON 4 MG TAB.RAPDIS PO ONE (08:00)
[2018-01-05] MEDS ORDERED: MORPHINE SULFATE INJ 2 MG/ML DISP.SYRIN IM ONE (08:00)
--- NOTE | 2018-01-05 08:00 | NUR ---
PT MEDICATED ORDERED. FC DC'D, NEW ONE INSERTED. LEG BAG CHANGED WELL.
[2018-01-05] MEDS ORDERED: ONDANSETRON 4 MG TAB.RAPDIS ONE (08:02)
[2018-01-05] MEDS ORDERED: MORPHINE SULFATE INJ 4 MG/ML DISP.SYRIN ONE (08:02)
[2018-01-05] MEDS ORDERED: PHENAZOPYRIDINE HCL 200 MG TABLET ONE (08:22)
[2018-01-05] MEDS ORDERED: PHENAZOPYRIDINE HCL 200 MG TABLET PO ONE (08:30)
[2018-01-05] MEDS ORDERED: HYOSCYAMINE SULFATE 0.125 MG TAB.SUBL SL PRN (08:30)
[2018-01-05] MEDS ORDERED: DIAZEPAM 5 MG/ML 2 ML DISP.SYRIN IM ONE (08:30)
[2018-01-05 08:55] VITALS: BP 126/82
--- NOTE | 2018-01-05 08:57 | NUR ---
Patient discharged to home in stable condition. Written and verbal after care instructions given. Patient verbalizes understanding of instruction.
== END 2018-01-05 08:56 | disposition home or self-care (01) ==
LOC: ER 07:34
DX: T83.9XXA Unspecified complication of genitourinary prosthetic device, implant and graft, initial encounter (principal); C67.9 Malignant neoplasm of bladder, unspecified; E11.9 Type 2 diabetes mellitus without complications; G47.30 Sleep apnea, unspecified; I25.10 Atherosclerotic heart disease of native coronary artery without angina pectoris; K21.9 Gastro-esophageal reflux disease without esophagitis; M19.90 Unspecified osteoarthritis, unspecified site; F17.200 Nicotine dependence, unspecified, uncomplicated; N40.1 Benign prostatic hyperplasia with lower urinary tract symptoms; R33.8 Other retention of urine; Z79.82 Long term (current) use of aspirin; Z79.84 Long term (current) use of oral hypoglycemic drugs; Z95.5 Presence of coronary angioplasty implant and graft; Y92.89 Other specified places as the place of occurrence of the external cause
CPT/HCPCS: 51702; 96372; 99284; A4606; J2270; J3490; Q0162; Z7610

== ENCOUNTER 2018-05-18 16:06 | Emergency (ER) | payer BC ==
[~2018-05-18] VITALS: Ht 167.6 cm; Wt 74.8 kg
--- NOTE | 2018-05-18 16:44 | NUR ---
PATIENT TO ED DT SOB X 2 WEEKS. PATIENT IS AWAKE AND ALERT. NOT IN DISTRESS. SKIN IS WARM TO TOUCH AND NON DIAPHORETIC. NO CHEST PAIN. VSS
[2018-05-18 17:01] LABS: BASOPHILS # (AUTO) 0.1 /CMM (0.0-0.2); BASOPHILS % (AUTO) 0.8 % (0.0-2.0); EOSINOPHILS % (AUTO) 1.6 % (0.0-6.0); HEMATOCRIT 30 % (39-51); HEMOGLOBIN 9.6 g/dL (13.5-17.5); LYMPHOCYTES # (AUTO) 1.4 /CMM (0.8-4.8); LYMPHOCYTES % (AUTO) 20.1 % (20.0-44.0); MEAN CORPUSCULAR HEMOGLOBIN 25 PG (26.0-33.0); MEAN CORPUSCULAR HGB CONC 32 g/dl (31.0-36.0); MEAN CORPUSCULAR VOLUME 77 fL (80-96); MONOCYTES # (AUTO) 0.9 /CMM (0.1-1.30); MONOCYTES % (AUTO) 13.6 % (2.0-12.0); NEUTROPHILS # (AUTO) 4.3 /CMM (1.8-8.9); NEUTROPHILS % (AUTO) 63.9 % (43.0-81.0); PLATELET COUNT (AUTO) 278 /CMM (150-450); RDW COEFFICIENT OF VARIATION 14.3 (11.5-15.0); RED BLOOD CELL COUNT(AUTO) 3.86 MIL/uL (4.5-6.0); WHITE BLOOD COUNT (AUTO) 6.8 K/uL (4.3-11.0)
[2018-05-18 17:04] LABS: CALCIUM, SERUM 8.9 mg/dL (8.5-10.1); CARBON DIOXIDE 26 mmol/L (21-32); CHLORIDE 107 mmol/L (98-107); GLUCOSE 100 mg/dL (74-106); POTASSIUM 3.6 mmol/L (3.5-5.1); SODIUM SERUM 139 mmol/L (136-145); UREA NITROGEN, BLOOD 17 mg/dL (7-18)
[2018-05-18 17:10] LABS: INR 0.95 (0.85-1.15)
[2018-05-18 17:13] LABS: TROPONIN I < 0.017 ng/mL (0.00-0.056)
--- NOTE | 2018-05-18 18:57 | NUR ---
PT. VERBALIZED UNDERSTANDING OF AFTERCARE INSTRUCTIONS.Patient discharged to home in stable condition. Written and verbal after care instructions given. Patient verbalizes understanding of instruction.
--- NOTE | 2018-05-18 18:57 | NUR ---
IV removed. Catheter intact and site benign. Pressure and 4x4 applied to site. No bleeding noted.
[2018-05-18 18:58] VITALS: BP 137/81
== END 2018-05-18 18:58 | disposition home or self-care (01) ==
LOC: ER 16:10
DX: D64.9 Anemia, unspecified (principal); I25.10 Atherosclerotic heart disease of native coronary artery without angina pectoris; G47.30 Sleep apnea, unspecified; K21.9 Gastro-esophageal reflux disease without esophagitis; N40.0 Benign prostatic hyperplasia without lower urinary tract symptoms; E11.9 Type 2 diabetes mellitus without complications; M19.90 Unspecified osteoarthritis, unspecified site; J44.9 Chronic obstructive pulmonary disease, unspecified; I25.2 Old myocardial infarction; F17.200 Nicotine dependence, unspecified, uncomplicated; Z85.51 Personal history of malignant neoplasm of bladder; Z95.818 Presence of other cardiac implants and grafts; Z60.2 Problems related to living alone; Z79.82 Long term (current) use of aspirin; Z79.84 Long term (current) use of oral hypoglycemic drugs; Z79.899 Other long term (current) drug therapy; Z85.46 Personal history of malignant neoplasm of prostate
CPT/HCPCS: 36415; 71045; 80048; 84484; 85025; 85730; 93005; 99285; A4606; Z7610